=== PATIENT | female | born 1985 | race Caucasian/White ===

== ENCOUNTER 2017-09-15 00:08 | Emergency (ER) | payer SELFPAY ==
[~2017-09-15] VITALS: Ht 165.1 cm; Wt 64.0 kg
[2017-09-15] MEDS ORDERED: LORAZEPAM 2MG/ML CPJ IV STA (00:34)
[2017-09-15] MEDS ORDERED: SODIUM CHLORIDE 0.9% 1,000 ML IV ONE (00:34)
[2017-09-15 01:14] LABS: HCG SCREEN NEGATIVE
[2017-09-15 01:15] LABS: BASOPHILS % 0.5 % (0.0-2.0); EOSINOPHILS % 0.3 % (0.0-5.0); HEMATOCRIT. 40.6 % (36.0-48.0); HEMOGLOBIN. 13.9 g/dL (12.0-16.0); LYMPHOCYTES % 15.1 % (20.0-50.0); MEAN CORPUSCULAR HEMOGLOBIN 31.8 pg (28.0-32.0); MEAN PLATELET VOLUME 8.3 fl (7.4-10.4); MONOCYTES % 6.4 % (2.0-8.0); NEUTROPHILS % 77.7 % (40.0-76.0); PLATELET 276 x1000/uL (130-400); RED BLOOD CELL COUNT 4.36 mill/uL (4.2-5.4); RED CELL DISTRIBUTION WIDTH 13.2 % (11.6-14.6)
[2017-09-15 01:17] LABS: CHLORIDE 106 mEq/L (98-107)
[2017-09-15 01:18] LABS: AMMONIA 40 uMol/L (<32)
[2017-09-15 01:28] LABS: CLARITY URINE CLEAR (CLEAR); COLOR URINE YELLOW (YELLOW); GLUCOSE URINE NEGATIVE (NEGATIVE); KETONES URINE NEGATIVE (NEGATIVE); LEUKOCYTE ESTERASE URINE NEGATIVE (NEGATIVE); NITRITE URINE NEGATIVE (NEGATIVE); OCCULT BLOOD URINE NEGATIVE (NEGATIVE); PROTEIN URINE TRACE (NEGATIVE); SPECIFIC GRAVITY URINE 1.009 (1.005-1.030)
[2017-09-15 01:31] LABS: CARBON DIOXIDE 23 mEq/L (21-32); CREATINE KINASE 161 IU/L (26-192); ETHANOL BLOOD 194 mg/dL
[2017-09-15] MEDS ORDERED: DIPHENHYDRAMINE 50MG/ML VIAL IM STA (01:50)
[2017-09-15] MEDS ORDERED: ZIPRASIDONE MESYLATE 20MG/VIAL IM ONE (02:00)
[2017-09-15 02:02] LABS: *AMPHETAMINES SCREEN URINE NEGATIVE (NEGATIVE); *BARBITURATES SCREEN URINE NEGATIVE (NEGATIVE); *BENZODIAZEPINES SCREEN URINE NEGATIVE (NEGATIVE); *COCAINE SCREEN URINE NEGATIVE (NEGATIVE); METHADONE URINE SCREEN NEGATIVE (NEGATIVE); OPIATES URINE SCREEN NEGATIVE (NEGATIVE); PHENCYCLIDINE URINE SCREEN NEGATIVE (NEGATIVE)
[2017-09-15 02:03] LABS: CANNABINOID URINE SCREEN PRESUMTIVE POSITIVE (NEGATIVE)
[2017-09-15] MEDS ORDERED: HALOPERIDOL LACTATE 5MG/ML VIAL IM ONE (03:00)
[2017-09-15] MEDS ORDERED: LORAZEPAM 2MG/ML CPJ IV ONE (03:00)
[2017-09-15] MEDS ORDERED: LACTULOSE 20G/30ML UDC PO SCH (04:30)
[2017-09-15 04:59] VITALS: BP 105/55
== END 2017-09-15 05:03 | disposition home or self-care (01) ==
LOC: ER 00:16
DX: F10.129 Alcohol abuse with intoxication, unspecified (principal); D72.829 Elevated white blood cell count, unspecified; E72.20 Disorder of urea cycle metabolism, unspecified; R41.0 Disorientation, unspecified
CPT/HCPCS: 36415; 70450; 80053; 80305; 80307; 80329; 81001; 82140; 82550; 83690; 84443; 84703; 85025; 93005; 96361; 96372; 96374; 96376; 99285; G0482; J1200; J1630; J2060; J3486; J7030; Z7610